=== PATIENT | male | born 1950 | race Caucasian/White ===

== ENCOUNTER 2019-05-02 12:27 | Emergency (ER) | payer MEDICARE ==
[~2019-05-02] VITALS: Ht 185.4 cm; Wt 97.5 kg
--- OUTSIDE RECORDS SUMMARY | 2019-05-02 12:30 | XMS REPORT ---
Author Author [facility] Address Unknown Phone Unavailable Care Team Providers Care Highway Maintainer Name Role Phone CRAIG GOLDEN Unavailable Unavailable Problems This patient has no known problems. Allergies, Adverse Reactions, Alerts This patient has no known allergies or adverse reactions. Medications This patient has no known medications. Results Test Description Test Time Test Comments Text Results Atomic Results Result Comments EBV VIRAL LOAD 2018-12-29 14:36:00 EBV VIRAL LOAD - NEGATIVE (NOAM) (test oepm=9137) Negative or below the linear range of the assay (<500 copies/mL) This assay was performed by real-time PCR for the detection of the Laura-Lopez virus (EBV) gene EBNA-1. The test is composed of (1) DNA extraction from patien t specimen, and (2) real-time PCR amplification and detection with ENBV-9-mjlpsd ic primers and probes. A well-conserved region of the EBNA-1 gene is targeted, a long with an internal control sequence used to confirm PCR amplification. Asympt omatic carriers and viral genetic variation, among other factors, can affect the accuracy of nucleic acid testing; therefore, results should be interpreted in l ight of clinical data.This test was developed and its performance characteristic s determined by the [facility] Pathology Department, Section of [facility]. It has not been cleared or approved by the U.S. Food and [place] g Administration (FDA), since FDA approval is not required for clinical use of t he test. Validation was done as required by The Clinical Laboratory Improvement Amendments of 1988.EBV ANTIBODY, [id number] 11:19:00* Test Item Value Reference Range Comments LAURA LOPEZ VIRAL CAPSID ANTIGEN IGM (NOAM) (test ntoh=8337) Negative Negative, Equivocal Laura Lopez Viral Capsid Antigen IgM Result Interpretation: </=0.8 Al Negative 0.9-1.0 Al Equivocal >/=1.1 Al PositiveEBV ANTIBODY, [id number] 11:19:00* Test Item Value Reference Range Comments LAURA LOPEZ VIRAL CAPSID ANTIGEN IGG (BEAKER) (test ebtc=6683) Positive Negative, Equivocal Laura Lopez Viral Capsid Antigen IgG Result Interpretation: </=0.8 Al Negative 0.9-1.0 Al Equivocal >/=1.1 Al PositiveCYTOMEGALOVIRUS ANTIBODY, [id number] 11:19:00* Test Item Value Reference Range Comments CYTOMEGALOVIRUS IGM ANTIBODY (BEAKER) (test ldoz=1327) Negative Negative, Equivocal CMV IgM Result Interpretation: </=0.8 Al Negative 0.9-1.0 Al Equivocal > /=1.1 Al PositiveCYTOMEGALOVIRUS ANTIBODY, [id number] 11:19:00* Test Item Value Reference Range Comments CYTOMEGALOVIRUS, IGG (BEAKER) (test ngbg=6148) Negative Negative, Equivocal CMV IgG Result Interpretation: </=0.8 Al Negative 0.9-1.0 Al Equivocal >/=1.1 Al PositiveCBC W/PLT COUNT & AUTO [id number] 15:21:00* Test Item Value Reference Range Comments WHITE BLOOD CELL COUNT (BEAKER) (test cgtz=569) 7.1 K/ L 3.5-10.5 RED BLOOD CELL COUNT (BEAKER) (test wbmf=063) 4.51 M/ L 4.63-6.08 HEMOGLOBIN (BEAKER) (test ftss=799) 14.1 GM/DL 13.7-17.5 HEMATOCRIT (BEAKER) (test aoaf=867) 40.9 % 40.1-51.0 MEAN CORPUSCULAR VOLUME (BEAKER) (test mogp=764) 90.7 fL 79.0-92.2 MEAN CORPUSCULAR HEMOGLOBIN (BEAKER) (test grzr=251) 31.3 pg 25.7-32.2 MEAN CORPUSCULAR HEMOGLOBIN CONC (BEAKER) (test uiqp=356) 34.5 GM/DL 32.3-36.5 RED CELL DISTRIBUTION WIDTH (BEAKER) (test wqff=875) 13.0 % 11.6-14.4 PLATELET COUNT (BEAKER) (test eaoq=839) 214 K/CU MM 150-450 MEAN PLATELET VOLUME (BEAKER) (test jgxp=541) 10.0 fL 9.4-12.4 NUCLEATED RED BLOOD CELLS (BEAKER) (test bpuy=337) 0 /100 WBC 0-0 NEUTROPHILS RELATIVE PERCENT (BEAKER) (test gpud=957) 71 % LYMPHOCYTES RELATIVE PERCENT (BEAKER) (test yweg=129) 18 % MONOCYTES RELATIVE PERCENT (BEAKER) (test agyy=894) 8 % EOSINOPHILS RELATIVE PERCENT (BEAKER) (test cuau=016) 2 % BASOPHILS RELATIVE PERCENT (BEAKER) (test sntx=949) 1 % NEUTROPHILS ABSOLUTE COUNT (BEAKER) (test hrtn=826) 5.02 K/ L 1.78-5.38 LYMPHOCYTES ABSOLUTE COUNT (BEAKER) (test qldl=350) 1.27 K/ L 1.32-3.57 MONOCYTES ABSOLUTE COUNT (BEAKER) (test tsfu=340) 0.58 K/ L 0.30-0.82 EOSINOPHILS ABSOLUTE COUNT (BEAKER) (test qinf=145) 0.14 K/ L 0.04-0.54 BASOPHILS ABSOLUTE COUNT (BEAKER) (test mqtd=404) 0.05 K/ L 0.01-0.08 IMMATURE GRANULOCYTES-RELATIVE PERCENT (BEAKER) (test wwno=0947) 0 % 0-1 CT ABDOMEN AND PELVIS [id number] 10:27:14CLINICAL INDICATION: R10.32 Left lower quadrant painMODALITY: Siemens Horizon CT (Iterative dose reduction techniques are utilized.)TECHNIQUE: Helical imaging of the abdomen and pelvis is performed. Oral contrast is administered. 90 mls optiray 350 are administered IV. Imaging performed prior to and after administration of contrast.Computed Tomography Dose Index: 42.84 mGy. IMPRESSION:FINDI NGS:COMPARISON: No prior study.The lung bases are clear. No pleural disease is present.The liver is enlarged with a length of 18.8 cm. It is mildly decreased in density consistent with fatty infiltration. I see no focal attenuation defect suspicious for replacement lesion or abnormal contrast enhancement. Hepatic vei ns, portal venous system and biliary tree are normal. The gallbladder is normal in appearance.Stomach and duodenum are unremarkable. The spleen is normal in siz e and contour. No pancreatic mass, pancreatic duct dilatation or peripancreatic edema is visible.Adrenal glands and kidneys are normal. There are no renal calcu li, hydronephrosis or masses noted.Neither retrocrural nor retroperitoneal adeno stephanie is present. Vascular structures are within normal limits.No significant norma wel pathology is noted. Omentum and mesentery are unremarkable.Abdominal wall is intact. No ascites visualized. Negative bladder. Unremarkable prostate gland.No lytic or blastic osseous lesions are observed.PQRS 436: [id number] (For official use only.)
[2019-05-02] MEDS ORDERED: FAMOTIDINE 20 MG/2 ML VIAL IV STA (13:02)
[2019-05-02] MEDS ORDERED: SODIUM CHLORIDE 0.9% ONE (13:14)
[2019-05-02] MEDS ORDERED: IOPAMIDOL 370 MG/ML 200 ML INFUS..BTL INJ ONE (13:14)
[2019-05-02] MEDS ORDERED: SODIUM CHLORIDE 0.9% 1000ML 1,000 ML IV SCH (13:15)
[2019-05-02] MEDS ORDERED: DICYCLOMINE HCL 20 MG TAB PO ONE (13:15)
[2019-05-02] MEDS ORDERED: DICYCLOMINE HCL 10 MG CAP ONE (13:16)
--- NOTE | 2019-05-02 14:22 | Diagnostic Imaging Report ---
CT of the abdomen and pelvis, with contrast, 05/02/2019. History: Abdominal pain. Comparison: None available. Technique: Multidetector CT scanning of the abdomen and pelvis was performed from the level of the lung bases to the inferior pubic rami after intravenous administration of contrast. Coronal and sagittal multiplanar reformations were obtained. RADIATION DOSE: Total DLP: 778 mGy*cm Dose modulation, iterative reconstruction, and/or weight based adjustment of the mA/kV was utilized to reduce the radiation dose to as low as reasonably achievable. Discussion: LUNG BASES: There is bibasilar dependent atelectasis. ABDOMEN: The liver, gallbladder, biliary tree, spleen, pancreas, adrenal glands, and kidneys are normal. The hepatic vein, portal vein, and splenic vein are patent. The abdominal aorta is within normal limits for size. Evaluation of the bowel is limited without oral contrast. There is no bowel dilatation. The appendix is visualized and is normal. Several diverticuli are present within the descending and sigmoid colon with minimal adjacent mesenteric fat stranding around the proximal sigmoid colon. There is no evidence of free air or focal fluid collection. There is no evidence of adenopathy or free fluid. A small fat-containing umbilical hernia is present. PELVIS: The bladder, prostate, and seminal vesicles are normal in appearance. There is no evidence of free fluid or adenopathy. BONES AND SOFT TISSUES: Advanced degenerative changes are present in the lower lumbar spine without evidence of lytic or sclerotic lesion. IMPRESSION: Possible mild distal colonic diverticulitis without evidence of perforation or abscess. Otherwise unremarkable exam. Signed by: Fady Olvera on 05/02/2019 2:19 PM
[2019-05-02] MEDS ORDERED: CIPROFLOXACIN 500 MG TAB PO STA (14:35)
[2019-05-02] MEDS ORDERED: METRONIDAZOLE 500 MG TAB PO ONE (14:45)
[2019-05-02] MEDS ORDERED: CIPROFLOXACIN 500 MG TAB ONE (14:48)
[2019-05-02] MEDS ORDERED: CIPRO500 MG PO ×2 (14:56→14:58)
[2019-05-02] MEDS ORDERED: METRONIDAZOLE500 MG PO (14:59)
[2019-05-02] MEDS ORDERED: DICYCLOMINE HCL20 MG PO (15:02)
[2019-05-02 15:29] VITALS: BP 140/86
== END 2019-05-02 15:33 | disposition home or self-care (01) ==
LOC: FSED 12:27
DX: R10.32 Left lower quadrant pain (principal); R10.31 Right lower quadrant pain; R19.7 Diarrhea, unspecified; K57.32 Diverticulitis of large intestine without perforation or abscess without bleeding; E78.5 Hyperlipidemia, unspecified
CPT/HCPCS: 74177; 80053; 81003; 93005; 96374; 99284; J7030; Q9967

== ENCOUNTER 2019-05-28 18:59 | Emergency (ER) | payer MEDICARE ==
[~2019-05-28] VITALS: Ht 185.4 cm; Wt 97.5 kg
[~2019-05-28 18:59] MED LIST: CIPRO500 MG PO; DICYCLOMINE HCL20 MG PO; METRONIDAZOLE500 MG PO
[2019-05-28] MEDS ORDERED: ONDANSETRON HCL INJ 2MG/ML 2ML 2 MG/ML VIAL IV STA (19:37)
[2019-05-28] MEDS ORDERED: SODIUM CHLORIDE 0.9% 1000ML 1,000 ML IV STA (19:37)
[2019-05-28] MEDS ORDERED: PIPER-TAZ 3.375 GM 50 ML IV STA (19:37)
[2019-05-28] MEDS ORDERED: METHYLPREDNISOLONE SOD SUCC 125 MG/2ML VIAL IV STA (19:37)
--- NOTE | 2019-05-28 19:44 | NUR ---
RECVD CALL FROM PTS ASKING WHY WE DID NOT GIVE THE PATIENT A PRFESSIONAL SURGICAL MASK OR A N95 MASK? SHE WANTED TO KNOW THE REASON, TOLD PATIENT THAT HER WALKED INTO OUR EMERGENCY ROOM WEARING A MASK (HOMEMADE) AND THAT WAS SUFFICIENT FOR HIS STAY HERE IN EMERGENCY ROOM, ALSO NOTIFIED HER THAT ALL EMERGENCY ROOMS DO NOT NECESSARILY GIVE MASKS OUT CURRENTLY UNLESS INDICATED BUT AGAIN HE ALREADY HAD ONE, ASKED HER WHERE SHE WAS GETTING HER INFORMATION THAT ALL PATIENTS WERE NEEDING TO BE GIVEN A MASK, SHE STATED FROM HER BROTHER WHO IS A NURSE, I TOLD HER SHE SHOULD HAVE SENT HER TO HER BROTHERS FACILITY? PATIENT THEN STARTED TO YELL AT ME AND LAUGHING AT ME ASKING IF I WAS COPPING AN ATTITUDE? I HUNG UP PHONE AND WILL AWAIT FURTHER INTERACTION FROM PATIENTS . PATIENT ASKED MYSELF, THE MULTIMEDIA SERVICES COORDINATOR, AND THE DOCTOR ALL FOR A MASK AND WE REASSURED HIM THAT WHAT HE HAS ON IS MORE THAN SUFFIECIENT FOR HIS PROTECTION.
[2019-05-28] MEDS ORDERED: SODIUM CHLORIDE FLUSH 10 ML SYR INJ PRN (19:45)
[2019-05-28] MEDS ORDERED: ONDANSETRON HCL INJ 2MG/ML 2ML 2 MG/ML VIAL ONE (19:58)
[2019-05-28] MEDS ORDERED: METHYLPREDNISOLONE SOD SUCC 125 MG/2ML VIAL ONE (19:59)
[2019-05-28] MEDS ORDERED: SODIUM CHLORIDE 0.9% 1000ML 1,000 ML ONE (19:59)
[2019-05-28] MEDS ORDERED: PIPER-TAZ 3.375 GM 50 ML ONE (19:59)
[2019-05-28] MEDS ORDERED: LOMOTIL TABLET1 EACH PO (21:13)
[2019-05-28] MEDS ORDERED: AUGMENTIN 875-1 EACH PO (21:13)
[2019-05-28] MEDS ORDERED: LEVSIN-SL0.125 MG PO (21:13)
[2019-05-28] MEDS ORDERED: PREDNISONE20 MG PO (21:13)
[2019-05-28] MEDS ORDERED: ONDANSETRON ODT8 MG PO (21:13)
== END 2019-05-28 21:45 | disposition home or self-care (01) ==
LOC: FSED 18:59
DX: R10.9 Unspecified abdominal pain (principal); R51 Headache; R53.83 Other fatigue; K57.92 Diverticulitis of intestine, part unspecified, without perforation or abscess without bleeding; E86.0 Dehydration
CPT/HCPCS: 80053; 85025; 99283; J2405; J2543; J2930; J7030

== ENCOUNTER 2022-02-15 09:11 | Emergency (ER) | payer MEDICARE ==
[~2022-02-15] VITALS: Ht 185.4 cm; Wt 97.6 kg
[~2022-02-15 09:11] MED LIST changes: +AUGMENTIN 875-1 EACH PO; +LEVSIN-SL0.125 MG PO; +LOMOTIL TABLET1 EACH PO; +ONDANSETRON ODT8 MG PO; +PREDNISONE20 MG PO
[2022-02-15] MEDS ORDERED: FAMOTIDINE20 MG PO (09:42)
[2022-02-15] MEDS ORDERED: ASPIRIN EC81 MG PO (09:42)
[2022-02-15] MEDS ORDERED: CIALIS5 MG (09:42)
[2022-02-15] MEDS ORDERED: ALLEGRA ALLERGY60 MG PO (09:42)
[2022-02-15] MEDS ORDERED: CRESTOR10 MG PO (09:42)
[2022-02-15] MEDS ORDERED: OMEPRAZOLE40 MG PO (09:42)
[2022-02-15] MEDS ORDERED: MULTIVITAMINS1 EAC6 PO (09:42)
[2022-02-15] MEDS ORDERED: PROBIOTIC & AC1 EACH PO (09:42)
[2022-02-15] MEDS ORDERED: CEFDINIR300 MG PO ×2 (10:07→10:24)
[2022-02-15] MEDS ORDERED: BROMPHENIR-PSE118 ML PO ×2 (10:07→10:24)
== END 2022-02-15 10:18 | disposition home or self-care (01) ==
LOC: FSED 09:27
DX: R05.9 Cough, unspecified (principal); J20.9 Acute bronchitis, unspecified; I10 Essential (primary) hypertension; E78.5 Hyperlipidemia, unspecified; I48.91 Unspecified atrial fibrillation; K21.9 Gastro-esophageal reflux disease without esophagitis; Z20.822 Contact with and (suspected) exposure to COVID-19; Z87.19 Personal history of other diseases of the digestive system
CPT/HCPCS: 83518; 87400; 99283; U0002